=== PATIENT | female | born 1995 | race Caucasian/White ===

== ENCOUNTER 2016-08-25 18:05 | Emergency (ER) | payer SELFPAY ==
[~2016-08-25 18:05] MED LIST: ANTIBIOTIC; IBUPROFEN800 MG PO
== END 2016-08-25 20:45 | disposition home or self-care (01) ==
LOC: CFTX 18:05 → CED 18:05 → CFTX 20:45
DX: K08.89 Other specified disorders of teeth and supporting structures (principal); F17.200 Nicotine dependence, unspecified, uncomplicated
CPT/HCPCS: 99282